=== PATIENT | female | born 1980 | race African-American/Black ===

== ENCOUNTER 2016-11-20 15:02 | Emergency (ER) | payer MEDICAID ==
[~2016-11-20] VITALS: Ht 170.2 cm; Wt 114.7 kg
[~2016-11-20 15:02] MED LIST: DIVA-68 PO; RISP1TAB3 PO; TRAZ100T15 PO
[2016-11-20] MEDS ORDERED: EPINEPHRINE SYRINGE 0.1 MG/ML, 10ML ONE (15:10)
[2016-11-20] MEDS ORDERED: CALCIUM CHLORIDE 10%, 10ML SYR ONE (15:10)
== END 2016-11-20 16:50 | disposition expired ==
LOC: EDBD → MERGE 15:02 → ED 16:02
DX: I46.9 Cardiac arrest, cause unspecified (principal)
CPT/HCPCS: 82962; 92950; 99285